=== PATIENT | female | born 1995 | race Two or more races ===

== ENCOUNTER 2023-05-02 10:14 | Outpatient (REF) | payer MEDICAID, OTHER, SELFPAY ==
--- NOTE | ~2023-05-02 | XR_ITS ---
EXAMINATION: XR KNEE, LEFT CLINICAL INFORMATION: Pain COMPARISON: None available. TECHNIQUE: Three views of the left knee. FINDINGS: No significant knee joint effusion. Bones are normal anatomic alignment with no acute fracture or dislocation. No significant bony degenerative or destructive changes. XR/XR knee LT 3V IMPRESSION: No acute bony abnormality.
== END 2023-05-02 10:15 | disposition home or self-care (01) ==
LOC: HO.HHCX 10:14
PROVIDERS: Visit Provider Family Medicine
DX: M25.562 Pain in left knee (principal)
CPT/HCPCS: 73562

== ENCOUNTER 2023-05-02 11:14 | Outpatient (REF) | payer MEDICAID, OTHER, SELFPAY ==
[2023-05-02 13:31] LABS: UPreg QC Valid YES; Urine Pregnancy NEGATIVE (NEGATIVE)
[2023-05-02 16:43] LABS: CT PCR NOT DETECTED (Not Detect.); NG PCR NOT DETECTED (Not Detect.)
[2023-05-03 02:24] LABS: Syphilis Screen Nonreactive (Nonreactive)
[2023-05-03 02:58] LABS: HBS Num1 0.06 mIU/mL (0-7.99); HBc Num1 0.15 S/CO (0.00-0.79); HBsAGNum1 0.38 S/CO (0.00-0.99); HIV AB/AG Nonreactive (Nonreactive); HIV Num 1 0.06 S/CO (0.00-0.99); Hepatitis B Core Antibody Nonreactive (Nonreactive); Hepatitis B Surface Antigen Negative (Negative); ~Hepatitis B Surface Antibody NONREACTIVE (Nonreactive)
[2023-05-03 03:11] LABS: ~HepC Num1 0.17 S/CO (0.00-0.79); ~Hepatitis C Antibody Nonreactive (Nonreactive)
== END 2023-05-02 11:15 | disposition home or self-care (01) ==
LOC: HO.HHCL 11:14
PROVIDERS: Visit Provider Family Medicine
DX: Z11.4 Encounter for screening for human immunodeficiency virus [HIV] (principal); Z11.3 Encounter for screening for infections with a predominantly sexual mode of transmission
CPT/HCPCS: 0353U; 81025; 86704; 86706; 86780; 86803; 87340; 87389

== ENCOUNTER 2023-06-12 11:07 | Outpatient (REF) | payer MEDICAID, OTHER, SELFPAY ==
[2023-06-13 21:43] LABS: Rubella IgG Antibody 5.26 Index
== END 2023-06-12 11:08 | disposition home or self-care (01) ==
LOC: HO.HHCL 11:07
PROVIDERS: Visit Provider Family Medicine
DX: Z00.00 Encounter for general adult medical examination without abnormal findings (principal)
CPT/HCPCS: 36415; 86735; 86762; 86765

== ENCOUNTER 2023-11-02 11:12 | Outpatient (REF) | payer MEDICAID, OTHER, SELFPAY ==
[2023-11-02 12:59] LABS: MANUAL DIFF FLAG NO
[2023-11-02 13:10] LABS: Basophils Percent Auto 0.4 % (0-2); Eosinophils Absolute Auto 0.1 X10*3/uL (0.0-0.4); Eosinophils Percent Auto 1.3 % (0-4); Hematocrit 40.3 % (37.0-47.0); Hemoglobin 13.8 g/dl (12.0-16.0); Imm Gran Abs Auto 0.03 X10*3/uL (0.00-0.03); Imm Gran Pct Auto 0.3 % (0.0-0.4); Lymphocytes Absolute Auto 1.5 X10*3/uL (1.2-4.9); Lymphocytes Percent Auto 16.9 % (20-40); Mean Corpuscular HGB Conc 34.2 g/dl (31.0-35.0); Mean Corpuscular Hemoglobin 29.2 pg (27.0-33.0); Mean Corpuscular Volume 85.2 fL (80.0-98.0); Mean Platelet Volume 9.1 fL (9.4-12.3); Monocytes Absolute Auto 0.6 X10*3/uL (0.1-1.2); Monocytes Percent Auto 6.3 % (2-11); Neutrophils Absolute Auto 6.8 x10*3/uL (2.0-8.3); Neutrophils Percent Auto 74.8 % (45-73); Platelet Count 323 X10*3/uL (160-400); Red Blood Count 4.73 X10*6/uL (4.20-5.50); Red Cell Distribution Width 12.6 % (11.0-16.0); White Blood Count 9.1 X10*3/uL (4.8-10.8)
[2023-11-02 13:46] LABS: Alanine Aminotransferase 16 U/L (0-31); Albumin Level 4.3 g/dL (3.5-5.0); Alkaline Phosphatase 60 U/L (39-117); Anion Gap 10 (12-20); Aspartate Amino Transferase 17 U/L (5-31); Bilirubin Total 0.5 mg/dL (0.0-1.0); Blood Urea Nitrogen 16 mg/dL (9-16); Calcium 9.7 mg/dL (8.4-10.2); Carbon Dioxide 27 mmol/L (22-29); Chloride 108 mmol/L (96-108); Estimated Glomerular Filt Rate > 60; Glucose Random 82 mg/dL (60-115); Potassium 3.7 mmol/L (3.3-5.1); Sodium 141 mmol/L (135-145); Thyroid Stimulating Hormone 1.09 uIU/mL (0.32-4.0); Total Protein 7.8 g/dL (6.5-8.0)
== END 2023-11-02 11:13 | disposition home or self-care (01) ==
LOC: HO.HHCL 11:12
PROVIDERS: Visit Provider Family Medicine
DX: R63.4 Abnormal weight loss (principal)
CPT/HCPCS: 36415; 80053; 84443; 85025

== ENCOUNTER 2023-11-07 12:11 | Outpatient (REF) | payer MEDICAID, OTHER, SELFPAY | END 2023-11-07 12:12 | disposition home or self-care (01) | LOC: HO.HHCLNP 12:11 | PROVIDERS: Visit Provider Family Medicine | DX: R63.4 Abnormal weight loss (principal); R10.9 Unspecified abdominal pain | CPT/HCPCS: 87338 ==

== ENCOUNTER 2024-05-21 13:57 | Outpatient (REF) | payer MEDICAID, OTHER, SELFPAY ==
[2024-05-21 18:39] LABS: CT PCR NOT DETECTED (Not Detect.); NG PCR NOT DETECTED (Not Detect.)
[2024-05-22 04:29] LABS: Syphilis Screen Nonreactive (Nonreactive)
[2024-05-22 04:54] LABS: Hepatitis A Antibody IgG REACTIVE (Nonreactive); ~Hepatitis A Antibody IgG 12.19 S/CO (0.00-0.99)
[2024-05-22 04:55] LABS: HBc Num1 0.48 S/CO (0.00-0.79); HBsAGNum1 0.26 S/CO (0.00-0.99); HIV AB/AG Nonreactive (Nonreactive); HIV Num 1 0.05 S/CO (0.00-0.99); Hepatitis B Core Antibody Nonreactive (Nonreactive); Hepatitis B Surface Antigen Negative (Negative); ~HepC Num1 0.15 S/CO (0.00-0.79); ~Hepatitis B Surface Antibody REACTIVE (Nonreactive); ~Hepatitis C Antibody Nonreactive (Nonreactive)
== END 2024-05-21 13:58 | disposition home or self-care (01) ==
LOC: HO.HHCL 13:57
PROVIDERS: Visit Provider Family Medicine
DX: Z11.3 Encounter for screening for infections with a predominantly sexual mode of transmission (principal)
CPT/HCPCS: 36415; 86704; 86706; 86708; 86780; 86803; 87340; 87389; 87491; 87591

== ENCOUNTER 2024-07-04 18:41 | Outpatient (REF) | payer MEDICAID, OTHER, SELFPAY ==
--- NOTE | ~2024-07-04 | MR_ITS ---
EXAMINATION: MR KNEE WITHOUT CONTRAST, LEFT CLINICAL INFORMATION: Knee pain. COMPARISON: None available. TECHNIQUE: MRI of the knee without contrast was performed using routine sequences on a high-field scanner. FINDINGS: MENISCI: Medial Meniscus: Intact Lateral Meniscus: There is irregular abnormal signal throughout the body and anterior horn extending to the femoral articular surface indicative of meniscal tearing. Posterior horn intact. Trace edema/fluid lateral to the meniscal body. LIGAMENTS: Cruciate: Intact Collateral: Intact EXTENSOR MECHANISM: Intact ARTICULAR CARTILAGE/BONE: Patellofemoral Compartment: Normal Medial Compartment: Normal Lateral Compartment: Normal JOINT FLUID AND BURSAE: Trace Kuhn's cyst. MR/MR knee LT wo con IMPRESSION: Tear of the lateral meniscus. Electronically signed by: Bib Paige MD 07/08/2024 01:19 PM EDT
== END 2024-07-04 18:42 | disposition home or self-care (01) ==
LOC: HO.MRI 18:41
PROVIDERS: PCP Family Medicine; Visit Provider Family Medicine
DX: M25.562 Pain in left knee (principal)
CPT/HCPCS: 73721

== ENCOUNTER 2024-07-08 | Outpatient (REF) | payer MEDICAID, OTHER, SELFPAY ==
[2024-07-11 22:52] LABS: C. trachomatis RNA TMA NOT DETECTED (NOT DETECTED); N. gonorrhoeae RNA TMA NOT DETECTED (NOT DETECTED)
[2024-07-30 15:04] LABS: Previous Biopsy Date NONE GIVEN
[2024-08-06 08:42] LABS: Trichomonas (NAAT) NOT DETECTED
== END 2024-07-08 00:01 | disposition home or self-care (01) ==
LOC: HO.HHCLNP
PROVIDERS: Visit Provider Family Medicine
DX: Z01.419 Encounter for gynecological examination (general) (routine) without abnormal findings (principal)
CPT/HCPCS: 36415; 87491; 87591; 87661; 88175

== ENCOUNTER 2025-03-24 13:14 | Outpatient (REF) | payer MEDICAID, OTHER, SELFPAY ==
--- OUTSIDE RECORDS SUMMARY | 2025-03-24 14:15 | XMS_ITS | Clinical Summary ---
Author Organization [facility] Address [address] [id number] Care Team Providers Care Professor Of Environmental Studies Name Role Phone Kasandra Mar Primary Care Provider [phone] Allergies No known active allergies Medications No known medications Active Problems No known active problems Social History Tobacco Use Types Packs/Day Years Used Date Smoking Tobacco: Never Assessed Comments Unknown Sex and Gender Information Value Date Recorded Sex Assigned at Not on file Legal Sex Female 2:02 PM EDT Gender Identity Not on file Sexual Orientation Not on file Plan of Treatment Health Maintenance Due Date Last Done Comments Pap Smear 1996 Varicella Vaccines (1 of 2 - 13+ 2-dose series) 01/23/2009 COVID-19 Vaccine (2023-2 5 season) 2024 11/05/2021, 10/14/2021 Alcohol/Substance Use Screening 10/23/2024 Depression Screening and Follow-Up 10/23/2024 Social Drivers of Health Annual Screening 10/23/2024 Influenza Vaccine (Season Ended) 2025 DTaP,Tdap,and Td Vaccines (2 - Td or Tdap) 06/12/2033 06/12/2023 RSV Vaccine (60+ years old and patients) (1 - 1-dose 75+ series) 01/23/2071 Hepatitis B Vaccines Completed 12/14/2023, 07/13/2023, 06/12/2023 HIV Screening Completed 05/21/2024, 05/21/2024 Hepatitis C Screening Completed 05/21/2024 Pneumococcal Vaccine: Pediatric (0-5 Years) and At-Risk Patients (6-50 Years) Aged Out No longer eligible based on patient's age to complete this topic [facility] Care Teams Professor Of Environmental Studies Relationship Specialty Start Date End Date Kasandra Mar [address] [place] [address] PCP - General Family Medicine 07/12/24
[2025-03-24 16:08] LABS: MANUAL DIFF FLAG NO
[2025-03-24 16:13] LABS: Basophils Percent Auto 0.5 % (0-2); Eosinophils Absolute Auto 0.1 X10*3/uL (0.0-0.4); Eosinophils Percent Auto 1.8 % (0-4); Hematocrit 36.6 % (37.0-47.0); Hemoglobin 12.9 g/dl (12.0-16.0); Imm Gran Abs Auto 0.01 X10*3/uL (0.00-0.03); Imm Gran Pct Auto 0.2 % (0.0-0.4); Lymphocytes Absolute Auto 1.7 X10*3/uL (1.2-4.9); Lymphocytes Percent Auto 26.9 % (20-40); Mean Corpuscular HGB Conc 35.2 g/dl (31.0-35.0); Mean Corpuscular Hemoglobin 28.7 pg (27.0-33.0); Mean Corpuscular Volume 81.5 fL (80.0-98.0); Mean Platelet Volume 9.2 fL (9.4-12.3); Monocytes Absolute Auto 0.5 X10*3/uL (0.1-1.2); Monocytes Percent Auto 7.4 % (2-11); Neutrophils Absolute Auto 3.9 x10*3/uL (2.0-8.3); Neutrophils Percent Auto 63.2 % (45-73); Platelet Count 286 X10*3/uL (160-400); Red Blood Count 4.49 X10*6/uL (4.20-5.50); Red Cell Distribution Width 13.2 % (11.0-16.0); White Blood Count 6.2 X10*3/uL (4.8-10.8)
[2025-03-24 17:04] LABS: Alanine Aminotransferase 21 U/L (0-31); Albumin Level 4.3 g/dL (3.5-5.0); Alkaline Phosphatase 48 U/L (39-117); Anion Gap 11 (12-20); Aspartate Amino Transferase 22 U/L (5-31); Bilirubin Total 0.4 mg/dL (0.0-1.0); Blood Urea Nitrogen 20 mg/dL (9-16); Calcium 9.2 mg/dL (8.4-10.2); Carbon Dioxide 23 mmol/L (22-29); Chloride 109 mmol/L (96-108); Estimated Glomerular Filt Rate > 60; Glucose Random 97 mg/dL (60-115); Potassium 3.5 mmol/L (3.3-5.1); Sodium 139 mmol/L (135-145); Total Protein 7.4 g/dL (6.5-8.0)
[2025-03-24 17:12] LABS: TSH reflex Free T4 1.63 uIU/mL (0.32-4.0)
== END 2025-03-24 13:15 | disposition home or self-care (01) ==
LOC: HO.HHCL 13:14
PROVIDERS: Visit Provider Family Medicine
DX: R59.9 Enlarged lymph nodes, unspecified (principal)
CPT/HCPCS: 36415; 80053; 84443; 85025

== ENCOUNTER 2025-06-24 14:54 | Outpatient (REF) | payer MEDICAID, OTHER, SELFPAY ==
--- OUTSIDE RECORDS SUMMARY | 2025-06-24 14:15 | XMS_ITS | Encounter Summary ---
Author Organization [employer] Address [address] [place] [address] [address] [place] [address] Care Team Providers Care Ovens Supervisor Name Role Phone Kasandra Mar MD Primary Care Provider [phone] Encounter Details Date Type Department Care Team ([facility] st Contact Info) Description 06/24/2025 2:15 PM EDT Office Visit [facility] [address] [place], [place] [phone] Kasandra Mar MD [address] [place], [place] [phone] Anemia, unspecified type (Primary Dx) Social History Tobacco Use Types Packs/Day Years Used Date Smoking Tobacco: Never Passive Smoke Exposure: Never Smokeless Tobacco: Never Alcohol Use Standard Drinks/Week Comments Never 0 (1 standard drink = 0.6 oz pur e alcohol) Alcohol Answer Date Recorded Frequency of Alcohol Consumption Not on file 04/30/2024 Average Number of Drinks Not on file 024 Frequency of Binge Drinking Not on file 06/2024 Score 0 04/30/2024 Depression Answer Date Recorded Patient Health Questionnaire-9 Score 0 03/24/2025 Patient Health Questionnaire-9 Score 0 03/24/2025 Last PHQ-9: Questionnaire Data Not on file 0 03/24/2025 Housing Stability Answer Date Recorded What is your housing situation today? I have sara gilmore 08/28/[address] you li ve. Do you have problems with any of the following? None of the above 08/28/2023 Food Insecurity Answer Date Recorded Within the past 12 months, y ou worried that your food would run out before you got money to buy more: Never True 03/24/2025 Within the past 12 months,th e food you bought just didn't last and you didn't have enough money to get more: Never True 11/2024 Transportation Answer Date Recorded In the past 12 months, has l ack of transportation kept you from medical appts, meetings, work or from getting things needed for daily living? No 04/18/2024 Utilities Answer Date Recorded In the past 12 months, has t he electric, gas, oil or water company threatened to shut off services in your home? No 08/28/2023 Depression Answer Date Recorded Patient Health Questionnaire-2 Score 0 03/24/2025 Internet Access Answer Date Recorded Internet Access Q1 Yes 06/24/2024 Internet Access Q2 Not on file 06/24/2024 Comments No Sex and Gender Information Value Date Recorded Sex Assigned at Female 08/22/2022 10:39 AM EDT Legal Sex Female 10:39 AM EDT Gender Identity Female 01/26/2023 8:58 AM EDT Sexual Orientation Choose not to disclose 2021 10:39 AM EDT documented as of this encounter Last Filed Vital Signs Vital Sign Reading Time Taken Comments Blood Pressure 100/80 06/24/2025 2:11 PM EDT Pulse 74 06/24/2025 2:11 PM EDT Temperature 36.1 C (96.9 F) 06/24/2025 2:11 PM EDT Respiratory Rate 20 06/24/2025 2:11 PM EDT Oxygen Saturation 100% 06/24/2025 2:11 PM EDT Inhaled Oxygen Concentration - - Weight 56.4 kg (124 lb 6.4 oz) 06/24/2025 2:11 P M EDT Height 149.9 cm (4' 11 ) 06/24/2025 2:11 PM EDT Body Mass Index 25.13 06/24/2025 2:11 PM EDT documented in this encounter Plan of Treatment Upcoming Encounters Date Type Department Care Team (Late st Contact Info) Description 07/29/2025 2:30 PM EDT Office Visit [facility] [address] [place] [address] Ryan, Estelle, OD [address] [place], [place] [phone] Scheduled Orders Name Type Priority Associated Diagnoses Orde r Schedule CBC auto differential Lab Routine Anemia, unspecified type Expected: 06/24/2025 (Approximate), Expires: 06/24/2026 TSH with Reflex to Free T4 Lab Routine Anemia, unspecified type Expected: 06/24/2025 (Approximate), Expires: 06/24/2026 Ferritin Lab Routine Anemia, unspecified type Expected: 06/24/2025 (Approximate), Expires: 06/24/2026 Iron And Total Iron Binding Capacity Lab Routine Anemia, unspecified type Expected: 06/24/2025, Expires: 06/24/2026 Reticulocyte Count Lab Routine Anemia, unspecified type Expected: 06/24/2025, Expires: 06/24/2026 Vitamin B12 (Cobalamin) and Folate Panel, Serum Lab Routine Anemia, unspecified type Expected: 06/24/2025 (Approximate), Expires: 06/24/2026 documented as of this encounter Visit Diagnoses Diagnosis Anemia, unspecified type- Primary documented in this encounter Additional Health Concerns Assessment Noted Time PHQ-9 Depression Total Score: 0 03/24/20 25 11:11 AM EDT documented as of this encounter Care Teams Ovens Supervisor Relationship Specialty Start Date End Date Kasandra Mar MD [address] [place] [address] PCP - General Family Medicine 04/27/23 documented as of this encounter
--- OUTSIDE RECORDS SUMMARY | 2025-06-24 16:09 | XMS_ITS | Clinical Summary ---
Author Organization [facility] Address [address] [phone] Care Team Providers Care Yield Improvement Engineer Name Role Phone Kasandra Mar Primary Care Provider [phone] Allergies No known active allergies Medications No [...] of 2 - 13+ 2-dose series) 01/23/2009 Alcohol/Substance Use Screening 10/23/2024 Depression Screening and Follow-Up 10/23/2024 Social Drivers of Health Annual Screening 10/23/2024 COVID-19 Vaccine (3 - 2024-2 6 season) 2025 11/05/2021, 10/14/2021 Influenza Vaccine (#1) 2025 DTaP,Tdap,and Td Vaccines (2 - Td [...] patient's age to complete this topic Insurance [facility] Care Teams Yield Improvement Engineer Relationship Specialty Start Date End Date Kasandra Mar [address] [place] [id number] PCP - General Family Medicine 07/12/24
--- OUTSIDE RECORDS SUMMARY | 2025-06-24 16:09 | XMS_ITS | Encounter Summary ---
Author Organization [employer] Address [address] [place] [address] [address] [place] [address] Care Team Providers Care Industrial Technology Education Teacher Name Role Phone Kasandra Mar MD Primary Care Provider [phone] Reason for Referral * Imaging (Routine) - Closed Specialty Diagnoses / Procedures Referred By Latonya carmona Referred To Contact Radiology Diagnoses Left anterior knee pain Procedures MR Knee w/o Contrast Left Kasandra Mar MD [address] [place] [address] Phone: tel: fax: [address] Phone: tel: fax: Referral ID Status Reason Start Date Expiration Date Visits Re quested Visits Authorized [id number] Closed 05/20/2024 05/20/2025 1 1 Encounter Details Date Type Department Care Team (Late st Contact Info) Description 05/20/2024 Orders Only [facility] [address] [place], [place] [phone] Kasandra Mar MD [address] [place], [place] [phone] Left anterior knee pain (Primary Dx) Social History Tobacco Use Types [...] Answer Date Recorded Patient Health Questionnaire-9 Score 12 04/30/2024 Patient Health Questionnaire-9 Score 12 04/30/2024 Last PHQ-9: Questionnaire Data Not on file 0 04/30/2024 Housing Stability Answer Date Recorded What is your housing situation today? I have sara gilmore 08/28/[address] you li ve. Do you have problems with any of the following? None of the above 08/28/2023 Food Insecurity Answer Date Recorded Within the past 12 months, y ou worried that your food would run out before you got money to buy more: Sometimes True 2023 Within the past 12 months,th e food you bought just didn't last and you didn't have enough money to get more: Sometimes True 04/18/2024 Transportation Answer Date Recorded In the past [...] Answer Date Recorded Patient Health Questionnaire-2 Score 3 04/30/2024 Comments No Sex and Gender Information Value Date Recorded Sex Assigned at Female 08/22/2022 10:39 AM EDT Legal Sex Female 10:39 AM EDT Gender Identity Female 01/26/2023 8:58 AM EDT Sexual Orientation Choose not to disclose 2021 10:39 AM EDT documented as of this encounter Plan of Treatment Upcoming Encounters Date Type Department Care Team (Late st Contact Info) Description 07/29/2025 2:30 PM EDT Office Visit [facility] [address] [place], [place] [phone] Ryan, Estelle, OD [address] [place] [address] documented as of this encounter Procedures Procedure Name Priority Date/Time Associated Diagnosis Comments MR KNEE WO CONTRAST LEFT Routine 07/04/2024 6:49 PM EDT Left anterior knee pain documented in this encounter Results * MR Knee w/o Contrast Left (07/04/2024 6:49 PM EDT) Anatomical Region Laterality Modality Magnetic Resonan ce 07/04/2024 6:49 PM EDT Narrative 07/08/2024 1:21 PM EDT [address] [address] Magnetic Resonance Report Signed Patient: Crystal Desouza MR#: [id number] : 1995 Acct:[id number] Age/Sex: 29 / F ADM Date: 07/04/24 Loc: HO.MRI Attending Dr: Kasandra Mar MD Ordering Physician: Kasandra Mar MD Date of Service: 07/04/24 Procedure(s): MR knee LT wo con Accession Number(s): [id number] cc: Kasandra Mar MD EXAMINATION: MR KNEE WITHOUT CONTRAST, LEFT CLINICAL INFORMATION: Knee pain. COMPARISON: None available. TECHNIQUE: MRI of the knee without contrast was performed using routine sequences on a high-field scanner. FINDINGS: MENISCI: Medial Meniscus: Intact Lateral Meniscus: There is irregular abnormal signal throughout the body and anterior horn extending to the femoral articular surface indicative of meniscal tearing. Posterior horn intact. Trace edema/fluid lateral to the meniscal body. LIGAMENTS: Cruciate: Intact Collateral: Intact EXTENSOR MECHANISM: Intact ARTICULAR CARTILAGE/BONE: Patellofemoral Compartment: Normal Medial Compartment: Normal Lateral Compartment: Normal JOINT FLUID AND BURSAE: Trace Kuhn's cyst. MR/MR knee LT wo con IMPRESSION: Tear of the lateral meniscus. Electronically signed by: Bib Paige MD 07/08/2024 01:19 PM EDT Dictated By: Bib Paige MD Signed By: <Electronically signed by Bib Paige MD in OV> 07/08/24 1319 DD/ 1849 TD/TT: 07/04/24 1858 Lamp Wirer: NIMA Procedure Note Donotuseinterpreter, Image - 07/08/2024 [facility] [address] [place] [id number] Magnetic Resonance Report Signed Patient: Joseph Desouza#: [id number] : 1995Acct:[id number] Age/Sex: 29 / FADM Date: 07/04/24 Loc: HO.MRI Attending Dr: Kasandra Mar MD Ordering Physician: Kasandra Mar MD Date of Service: 07/04/24 Procedure(s): MR knee LT wo con Accession Number(s): [id number] cc: Kasandra Mar MD EXAMINATION: MR KNEE WITHOUT CONTRAST, LEFT CLINICAL INFORMATION: Knee pain. COMPARISON: None available. TECHNIQUE: MRI of the knee without contrast was performed using routine sequences on a high-field scanner. FINDINGS: MENISCI: Medial Meniscus: Intact Lateral Meniscus: There is irregular abnormal signal throughout the body and anterior horn extending to the femoral articular surface indicative of meniscal tearing. Posterior horn intact. Trace edema/fluid lateral to the meniscal body. LIGAMENTS: Cruciate: Intact Collateral: Intact EXTENSOR MECHANISM: Intact ARTICULAR CARTILAGE/BONE: Patellofemoral Compartment: Normal Medial Compartment: Normal Lateral Compartment: Normal JOINT FLUID AND BURSAE: Trace Kuhn's cyst. MR/MR knee LT wo con IMPRESSION: Tear of the lateral meniscus. Electronically signed by: Bib Paige MD 07/08/2024 01:19 PM EDT Dictated By: Bib Paige MD Signed By: <Electronically signed by Bib Paige MD inOV> 07/08/24 1319 DD/ 1849 TD/TT: 07/04/24 1858 Lamp Wirer: NIMA Kasandra Mar MD IMG MRI PROCEDURES Edited Result - Final documented in this encounter Visit Diagnoses Diagnosis Left anterior knee pain- Primary documented in this encounter Additional Health Concerns Assessment Noted Time PHQ-9 Depression Total Score: 12 024 4:23 PM EDT documented as of this encounter Care Teams Industrial Technology Education Teacher Relationship Specialty Start Date End Date Kasandra Mar MD [address] [place] [id number] PCP - General Family Medicine 04/27/23 documented as of this encounter
--- OUTSIDE RECORDS SUMMARY | 2025-06-24 16:09 | XMS_ITS | Encounter Summary ---
Author Organization [employer] Address [address] [place] [address] [address] [place] [address] Care Team Providers Care Customer Solutions Representative Name Role Phone Kasandra Mar MD Primary Care Provider [phone] Kasandra Mar MD Primary Care Provider [phone] Reason for Visit * Reason Onset Date Comments New Patient Appt 03/17/2023 Encounter Details Date Type Department Care Team (Late st Contact Info) Description 03/17/2023 Telephone [facility] [address] [place], [place] [phone] Kasandra Mar MD [address] [place] [address] New Patient Appt Social History Tobacco Use Types Packs/Day Years Used Date Smoking Tobacco: Never Smokeless Tobacco: Never Alcohol Use Standard Drinks/Week Comments Never 0 (1 standard drink = 0.6 oz pur e alcohol) Comments No Sex and Gender Information Value Date Recorded Sex Assigned at Female 08/22/2022 10:39 AM EDT Legal Sex Female 10:39 AM EDT Gender Identity Female 01/26/2023 8:58 AM EDT Sexual Orientation Choose not to disclose 2021 10:39 AM EDT COVID-19 Exposure Response Date Recorded In the last 10 days, have yo u been in contact with someone who was confirmed or suspected to have Coronavirus/COVID-19? No / Unsure 03/17/2023 12:51 PM EDT documented as of this encounter Miscellaneous Notes * Telephone Encounter - Nuzhat Eldridge David - 03/17/2023 11:23 AM EDT Tc to pt to Offer PASTRY COOK APPRENTICE appt, staff writer saw Pt was already schedule for an PASTRY COOK APPRENTICE on 04/27/[address] Mar @ 9:30 am. Pt demographics and insurance was confirmed and verified. Pt reports no medical conditions. Pt informs not taking any medications at this time. Pt will be sent appt reminder card and medical release form and agrees to complete and to return to medical records prior to PASTRY COOK APPRENTICE appt. documented in this encounter Plan of Treatment Upcoming Encounters Date Type Department Care Team (Late st Contact Info) Description 07/29/2025 2:30 PM EDT Office Visit [facility] [address] [place], [place] [phone] Estelle Davis, OD [address] [place] [address] documented as of this encounter Visit Diagnoses Not on filedocumented in this encounter Care Teams Customer Solutions Representative Relationship Specialty Start Date End Date Kasandra Mar MD [address] [place] [address] PCP - General Family Medicine 03/17/23 03/22/23 Kasandra Mar MD [address] [place] [address] PCP - General Family Medicine 04/27/23 documented as of this encounter
--- OUTSIDE RECORDS SUMMARY | 2025-06-24 16:09 | XMS_ITS | Encounter Summary ---
Author Organization [employer] Address [address] [place] [address] [address], [place] [address] Care Team Providers Care Security Analyst Name Role Phone Kasandra Mar MD Primary Care Provider [phone] Reason for Referral * Consultation (Urgent) - Closed Specialty Diagnoses / Procedures Referred By Contsayra t Referred To Contact Physical Therapy Diagnoses Left anterior knee pain Tear of lateral meniscus of left knee, current, unspecified tear type, initial encounter Kasandra Mar MD [address] [place] [address] Phone: tel: fax: [facility] [address] [place] [address] Phone: tel: fax: Referral ID Status Reason Start Date Expiration Date V isits Requested Visits Authorized [id number] Closed Specialty Services Required 07/23/2024 07/23/2025 1 1 Encounter Details Date Type Department Care Team (Late st Contact Info) Description 07/23/2024 Orders Only [facility] [address] [place], [place] [phone] Kasandra Mar MD [address] [place], [place] [phone] Left anterior knee pain (Primary Dx); Tear of lateral meniscus of left knee, current, unspecified tear type, initial encounter Social History Tobacco Use Types Packs/Day Years [...] Recorded Patient Health Questionnaire-2 Score 3 04/30/2024 Internet Access Answer Date Recorded Internet Access [...] Description 07/29/2025 2:30 PM EDT Office Visit [facility] [address] [place] [address] Estelle Davis, OD [address] [place] [address] documented as of this encounter Procedures Procedure Name Priority Date/Time Associated Diagnosis Comments AMB REFERRAL TO PHYSICAL THERAPY Urgent 10/08/2024 Left anterior knee pain Tear of lateral meniscus of left knee, current, unspecified tear type, initial encounter documented in this encounter Results * Referral to Physical Therapy (10/08/2024) Kasandra Mar MD OUTPATIENT REFERRAL ORDERABLES F inal Result documented in this encounter Visit Diagnoses Diagnosis Left anterior knee pain- Primary Tear of lateral meniscus of left knee, current, unspecified tear type, initial encounter documented in this encounter Additional Health Concerns Assessment Noted Time PHQ-9 Depression Total Score: 12 04/30/ 024 4:23 PM EDT documented as of this encounter Care Teams Security Analyst Relationship Specialty Start Date End Date Kasandra Mar MD [address] [place] [address] PCP - General Family Medicine 04/27/23 documented as of this encounter
--- OUTSIDE RECORDS SUMMARY | 2025-06-24 16:10 | XMS_ITS | Clinical Summary ---
Author Organization [facility] Address [address] [place] [address] [place] [id number] Phone Care Team Providers Care Porter Head Name Role Phone Kasandra Mar MD Primary Care Provider [phone] Allergies No known active allergies Social History Tobacco Use Types Packs/Day Years Used Date Smoking Tobacco: Never Assessed Education Answer Date Recorded Are you interested in more education? Not on rosio e 06/30/2023 Are you concerned about learning? Not on file 06/30/2023 No 06/30/2023 No 06/30/2023 Digital Access Answer Date Recorded No 06/30/2023 No 06/30/2023 Reliable internet access at home? Not on file 06/30/2023 Device with a working camera? Not on file Intimate Partner Violence Answer Date R ecorded Are you denied basic needs s uch as food, clothing, or medical care? No 06/30/2023 In the past 12 months have y ou been in a relationship with a person who hurts, threatens, or tries to control you? No 06/30/2023 Are you denied basic needs s uch as food, clothing, or medical care? No 06/30/2023 In the past 12 months have y ou been in a relationship with a person who hurts, threatens, or tries to control you? No 06/30/2023 Comments Unknown Sex and Gender Information Value Date Recorded Sex Assigned at Not on file Legal Sex Female 4:04 PM EDT Gender Identity Not on file Sexual Orientation Not on file Last Filed Vital Signs Vital Sign Reading Time Taken Comments Blood Pressure 101/62 06/30/2023 7:48 PM EDT Pulse 82 06/30/2023 7:48 PM EDT Temperature 36.4 C (97.5 F) 06/30/2023 7:48 PM EDT Respiratory Rate 18 06/30/2023 7:48 PM EDT Oxygen Saturation 100% 06/30/2023 7:48 PM EDT Inhaled Oxygen Concentration - - Weight 56.7 kg (125 lb) 06/30/2023 4:27 PM EDT Height 152.4 cm (5') 06/30/2023 4:27 PM EDT Body Mass Index 24.41 06/30/2023 4:27 PM EDT Plan of Treatment Health Maintenance Due Date Last Done Comments DEPRESSION SCREENING 2008 SMOKING Hx and SMOKELESS TOB ACCO SCREENING 01/23/2009 HEPATITIS C SCREENING 01/23/2014 HIV ONE-TIME SCREENING (18-6 5 YEARS) 01/23/2014 PAP SMEAR 01/23/2017 INFLUENZA VACCINE (#1) 2025 COVID-19 VACCINE (2023-2 5 season) 2025 Adult Td,Tdap Booster 06/12/2033 06/12/2023 HEPATITIS A VACCINES Aged Out No long er eligible based on patient's age to complete this topic HIB VACCINES Aged Out No longer eligi ble based on patient's age to complete this topic MENINGOCOCCAL VACCINES (ACWY) Aged Out No longer eligible based on patient's age to complete this topic MENINGOCOCCAL VACCINES (B) Aged Out N o longer eligible based on patient's age to complete this topic PNEUMOCOCCAL VACCINES (0-49 years) Aged Out No longer eligible based on patient's age to complete this topic Medical Devices Not on file Insurance [employer] HEALTH SAFETY NET FULL Member Subscriber Plan / Payer (Ef fective 2023-Present) Name:Crystal Desouza Relation to Subscriber:Self Name:Crystal Desouza Payer ID:Not on file Group ID:Not on file Type:Medicaid [address] [facility] HEALTH SAF[employer]Y NET FULL [employer] PUBLIC PLANS [employer] [facility] PLANS CONNE[employer]ARE DIRECT [facility] FULL [facility] DIRECT [facility] Address: [address] [id number] [facility] [employer] NET FULL Member Subscriber Plan / Payer (Ef fective 2023-Present) Name:Crystal Desouza Relation to Subscriber:Self Name:Crystal Desouza Payer ID:Not on file Group ID:Not on file Type:Medicaid Address: [address] [employer] [facility] SAFETY NET FULL Member Subscriber Plan / Payer (Ef fective 2023-Present) Name:Crystal Desouza Relation to Subscriber:Self Name:Crystal Desouza Payer ID:Not on file Group ID:Not on file Type:Medicaid Address: [address] [employer] DIRECT Care Teams Porter Head Relationship Specialty Start Date End Date Kasandra Mar MD [address] [place] [phone] PCP - General Family Medicine 07/25/24 Additional Source Comments The information contained in this document represents components of the legal health record. It is not the complete legal health record.[facility]
--- OUTSIDE RECORDS SUMMARY | 2025-06-24 16:10 | XMS_ITS | Encounter Summary ---
Author Organization [employer] Address [address] [place] [phone] Care Team Providers Care Cart Pusher Name Role Phone Kasandra Mar MD Primary Care Provider [phone] Reason for Visit * Reason Onset Date Comments Med Refill 06/16/2025 Encounter Details Date Type Department Care Team ([facility] st Contact Info) Description 06/16/2025 Telephone [facility] MEDICINE [address], [place] [phone] Kasandra Mar MD [address] [place], [place] [phone] Med Refill Social History Tobacco Use Types Packs/Day Years [...] AM EDT documented as of this encounter Miscellaneous Notes * Telephone Encounter - Claire Crabtree LPN - 06/16/2025 11:01 AM EDT Medication was sent to [facility] Pharmacy on 02/25/25 with 12 refills. * Telephone Encounter - Harsha Georges - 06/16/2025 10:28 AM EDT TC from pt requesting medication refill. Medications needing refill : norelgestromin-ethinyl estradiol (Ortho-Evra) 150-35 MCG/24HR To be sent to: [facility] documented in this encounter Plan of Treatment Upcoming Encounters Date Type Department Care Team (Late st Contact Info) Description 07/29/2025 2:30 PM EDT Office Visit [facility] OPTOMETRY [address], [place] [phone] Estelle Davis, OD [address] [place] [address] documented as of this encounter Visit Diagnoses Not on filedocumented in this encounter Additional Health Concerns Assessment Noted Time PHQ-9 Depression Total Score: 0 03/24/20 25 11:11 AM EDT documented as of this encounter Care Teams Cart Pusher Relationship Specialty Start Date End Date Kasandra Mar MD [address] [facility] [place] [address] PCP - General Family Medicine 04/27/23 documented as of this encounter
--- OUTSIDE RECORDS SUMMARY | 2025-06-24 16:10 | XMS_ITS | Clinical Summary ---
Author Organization [employer] Address [address] [place] [address] [address] [place] [address] Care Team Providers Care Wiener Packer Name Role Phone Kasandra Mar MD Primary Care Provider [phone] Allergies No known active allergies Medications * This document contains information received from the source organization and may not represent a complete record from that organization. chlorhexidine (Peridex) 0.12 % solution Use 15 mL in the mouth or throat if needed. Active terbinafine (LamISIL AT) 1 % cream Apply topically 2 times daily. 28.4 g 1 03/24/20 25 Active Urea 20 % ointment Apply to affected area once daily 454 g 2 03/24/20 25 Active hydrocortisone 2.5 % cream Apply topically 2 times daily. 28 g 2 03/24/20 25 Active diphenhydrAMIN E (BENADryl) 25 MG capsule Take 1 capsule (25 mg) by mouth every 6 (six) hours if needed for itching or allergies. 60 capsule 1 03/24/20 25 Active naproxen (Naprosyn) 500 MG tablet TAKE 1 TABLET BY MOUTH TWICE DAILY IN THE MORNING AND AT BEDTIME NEEDED FOR MILD PAIN OR FOR MODERATE PAIN 60 tablet 1 03/24/20 25 Active SUMAtriptan (Imitrex) 25 MG tablet Take 2 tablets (50 mg) by mouth 1 (one) time if needed for migraine for up to 1 dose. May repeat dose once in 2 hours if no relief. Do not exceed 2 doses in 24 hours. 9 tablet 3 03/24/20 25 Active norelgestromin -ethinyl estradiol (Ortho-Evra) 150-35 MCG/24HR Apply 1 patch each week for 3 weeks, then remove for 1 week. 3 patch 12 06/24/20 25 026 Active norelgestromin -ethinyl estradiol (Ortho-Evra) 150-35 MCG/24HR Apply 1 patch each week for 3 weeks, then remove for 1 week. 3 patch 12 02/26/20 025 Discontinued(Re order (will not trigger notification to Pharmacy)) Active Problems Problem Noted Date Diagnosed Date Family planning with transdermal contraceptive 0 04/04/2025 Assessment & Plan (04/04/2025 5:57 AM EDT): - Prescribed Ortho Evra in February 2025. -Patient has difficulty getting Ortho Evra from the pharmacy; will troubleshoot. Tinea pedis of both feet 04/04/2025 Assessment & Plan (04/04/2025 6:09 AM EDT): - trial of terbinafine topical or ciclopirox topical (cream) Lateral meniscus tear 07/08/2024 Skin lesion of right leg 04/30/2024 Assessment & Plan (04/30/2024 4:41 PM EDT): - a dark lesion near the right knee - will refer to dermatology clinic for further evaluation with possible biopsy Chronic headache 11/05/2023 Assessment & Plan (04/04/2025 6:02 AM EDT): - previously diagnosed with and treated for migraine in [facility] - likely migraine and tension headahe - APAP is effective, and current frequency is < 8 times per month - stress reduction, non-pharmacological measure for both prevention and treatment - continue current treatment at this time; reassess if she needs prophylactic medication and stronger abortive medication at next visit. Assessment & Plan (07/08/2024 5:05 PM EDT): - previously diagnosed with and treated for migraine in [facility] - likely migraine and tension headahe - APAP is effective, and current frequency is < 8 times per month - stress reduction, non-pharmacological measure for both prevention and treatment - continue current treatment at this time; reassess if she needs prophylactic medication and stronger abortive medication at next visit. Assessment & Plan (04/30/2024 4:38 PM EDT): - previously diagnosed with and treated for migraine in [facility] - likely migraine and tension headahe - APAP is effective, and current frequency is < 8 times per month - will monitor at this time - stress reduction, non-pharmacological measure for both prevention and treatment - reassess if she needs prophylactic medication and stronger abortive medication. Assessment & Plan (11/05/2023 6:14 AM EST): - previously diagnosed with and treated for migraine in [facility] - likely migraine and tension headahe - APAP is effective, and current frequency is < 8 times per month - will monitor at this time - stress reduction, non-pharmacological measure for both prevention and treatment - reassess if she needs prophylactic medication and stronger abortive medication. Migraine syndrome 11/05/2023 Assessment & Plan (04/04/2025 6:02 AM EDT): - frequency < 8 times per month - Continue judicious use of APAP and NSAIDs - Start sumatriptan as needed for severe migraine - consider prophylactic medications when migraine becomes more frequent Assessment & Plan (07/08/2024 5:15 PM EDT): - frequency < 8 times per month - patient states APAP and NSAIDs are effective - continue judicious use of medications - consider a stronger abortive medication and prophylactic medications when migraine worsens. Assessment & Plan (11/05/2023 6:17 AM EST): - frequency < 8 times per month - patient states APAP and NSAIDs are effective - continue judicious use of medications - consider a stronger abortive medication and prophylactic medications when migraine worsens. Left anterior knee pain 04/27/2023 Assessment & Plan (04/04/2025 5:59 AM EDT): - MRI on 07/04/24 showed lateral meniscus tear - encouraged to continue going to the gym, and try bicycling and/or aquatic exercise - continue with appropriate rest and judicious use of NSAIDs / APAP - Seen by [facility] orthopedist in June 2024. Recommended physical therapy which she received from July to September 2024. -Patient reports improvement of symptoms. Assessment & Plan (07/08/2024 5:07 PM EDT): - MRI on 07/04/24 showed lateral meniscus tear - encouraged to continue going to the gym, and try bicycling and/or aquatic exercise - continue with appropriate rest and judicious use of NSAIDs / APAP - refer to orthopedist Assessment & Plan (04/30/2024 4:38 PM EDT): - likely bursitis - home exercise program - encouraged to continue going to the gym, and try bicycling and/or aquatic exercise - refer to PT (if not covered by insurance, recommended to try [employer] for exercise program that will strengthen muscles surrounding her knees - continue with rest, ice, leg elevation, and judicious use of NSAIDs / APAP Assessment & Plan (11/05/2023 6:11 AM EST): - likely bursitis - home exercise program - encouraged to continue going to the gym, and try bicycling and/or aquatic exercise - refer to PT (if not covered by insurance, recommended to try [employer] for exercise program that will strengthen muscles surrounding her knees - continue with rest, ice, leg elevation, and judicious use of NSAIDs / APAP Assessment & Plan (04/30/2023 5:19 PM EDT): - likely bursitis - home exercise program - evaluate with X-ray - consider ortho or PT referral - continue with rest, ice, leg elevation, and judicious use of NSAIDs / APAP Depression 04/27/2023 Assessment & Plan (04/04/2025 5:58 AM EDT): - patient was previously interested in counseling, however patient was not interested in counseling currently Assessment & Plan (04/30/2024 4:40 PM EDT): - patient was previously interested in counseling, however patient was not interested in counseling currently - patient will follow-up within 2 months and will reassess whether she would like to see a therapist Assessment & Plan (04/30/2023 5:20 PM EDT): - pt would like to have a counseling - will refer Encounters Date Type Department Care Team Description 06/24/2025 2:15 PM EDT Office Visit [address] [address] Kasandra Mar MD Anemia, unspecified type (Primary Dx) 06/24/2025 Travel 06/16/[address] [address] Kasandra Mar MD Med Refill 05/07/[address] [address] Evy Castro [place] june04/14/[address] [address] Kasandra Mar MD 03/24/2025 11:00 AM EDT Office Visit [address] [address] Kasandra Mar MD Tinea pedis of both feet (Primary Dx); Lymph node enlargement; Left anterior knee pain; Tear of lateral meniscus of left knee, current, unspecified tear type, initial encounter; Chronic nonintractable headache, unspecified headache type; Migraine syndrome; Rash; Poison otilio dermatitis; Encounter for prescription for transdermal contraceptive; Major depressive disorder with single episode, remission status unspecified 03/24/2025 Travel from Last 3 Months Immunizations Immunization Administration Dates Next Due Hep B, adult 12/14/2023,07/13/2023,06/12/2023 Tdap 06/12/2023 Family History Medical History Relation Name Comments epilepsy Mother Relation Name Status Comments Mother Social History Tobacco Use Types Packs/Day Years Used Date Smoking Tobacco: Never Passive Smoke Exposure: Never Smokeless Tobacco: Never Tobacco Cessation:Counseling Given: Not Answered Alcohol Use Standard Drinks/Week Comments Never 0 [...] Q2 Not on file 06/24/2024 Comments No Intention Date Recorded No desire to become (finding) 0 03/24/2025 Sex and Gender Information Value Date Recorded Sex Assigned at Female 08/22/2022 10:39 AM EDT Legal Sex Female 10:39 AM EDT Gender Identity Female 01/26/2023 8:58 AM EDT Sexual Orientation Choose not to disclose 2021 10:39 AM EDT Last Filed Vital Signs Vital Sign Reading [...] Mass Index 25.13 06/24/2025 2:11 PM EDT Plan of Treatment Upcoming Encounters Date Type Department Care Team (Late st Contact Info) Description 07/29/2025 2:30 PM EDT Office Visit [facility] [address] [place] [address] Estelle Davis, OD [address] [place] [address] Health Maintenance Due Date Last Done Comments HPV Vaccines (1 - 3-dose series) 01/23/2011 Dental Oral Exam 01/30/2025 07/31/2024, 12/09/2022 Dental Prophylaxis 01/30/2025 07/31/2024, 07/07/2023, 01/26/2023 COVID-19 Vaccine (3 - 2024-2 6 season) 2025 11/05/2021, 10/14/2021 Influenza Vaccine (#1) 2025 Dental X-Ray: Bitewings 08/01/2025 07/31/2024 Alcohol/Substance Use Screening 03/24/2026 03/24/2025 Depression Screening 03/24/2026 03/24/2025, 03/24/2025 Disability Screening 03/24/2026 03/24/2025 SDOH Screening 03/24/2026 03/24/2025 Family Planning (PISQ) 04/04/2026 04/04/2025 Tobacco Screening 06/24/2026 06/24/2025 Pap Smear 07/08/2027 07/08/2024 Dental X-Ray: Full Mouth 08/01/2027 07/31/2024 DTaP/Tdap/Td Vaccines (2 - T d or Tdap) 06/12/2033 06/12/2023 Zoster Vaccines (1 of 2) 01/23/2046 RSV Patients and Patients Aged 60 years or older (1 - 1-dose 75+ series) 01/23/2071 Hepatitis B Vaccines Completed 12/14/2023, 07/13/2023, 06/12/2023 HIV Screening Completed 05/21/2024, 05/02/2023 Hepatitis C Screening Completed 05/21/2024 , 05/02/2023 HIB Vaccines Aged Out No longer eligi ble based on patient's age to complete this topic Hepatitis A Vaccines Aged Out No long er eligible based on patient's age to complete this topic IPV Vaccines Aged Out No longer eligi ble based on patient's age to complete this topic Meningococcal B Vaccine Aged Out No l onger eligible based on patient's age to complete this topic Meningococcal Vaccine Aged Out No ender romy eligible based on patient's age to complete this topic Pneumococcal Vaccine: Pediatrics (0 to 5 Years) and At-Risk Patients (6 to 49) Years Aged Out No longer eligible b ased on patient's age to complete this topic RSV under 20 months Aged Out No longe r eligible based on patient's age to complete this topic Rotavirus Vaccines Aged Out No longer eligible based on patient's age to complete this topic Procedures Procedure Name Priority Date/Time Associated Diagnosis Comments TSH W/REFLEX TO FT4 Routine 03/24/2025 1 :15 PM EDT Lymph node enlargement COMPREHENSIVE METABOLIC PANEL Routine 03/24/2025 1:15 PM EDT Lymph node enlargement CBC WITH AUTO DIFFERENTIAL Routine 03/24/2025 1:15 PM EDT Lymph node enlargement PROPHYLAXIS - ADULT Routine 07/31/2024 9 :00 AM EDT Dental plaque Dental calculus Gingivitis INTRAORAL - COMPLETE SERIES OF RADIOGRAPHIC IMAGES Routine 07/31/2024 9:00 AM EDT PERIODIC ORAL EVALUATION - ESTABLISHED PATIENT Routine 07/31/2024 9:00 AM EDT THINPREP IMAGING SYSTEM PAP Routine 07/08/2024 12:00 AM EDT Encounter for well woman exam with routine gynecological exam HEPATITIS C AB W/REFL TO HCV RNA, QN, PCR Routine 05/21/2024 2:05 PM EDT Routine screening for STI (sexually transmitted infection) HIV 1/2 ANTIGEN/ANTIBODY, FOURTH GENERATION W/RFL Routine 05/21/2024 2:05 PM EDT Routine screening for STI (sexually transmitted infection) from Last 3 Months or Most Recently Relevant to Health Maintenance Results * TSH with Reflex to Free T4 (03/24/2025 1:15 PM EDT) TSH reflex Free T4 1.63 0.32 - 4.0 uIU/mL [facility] Blood 03/24/2025 1:15 PM EDT 03/24/2025 4:04 PM EDT us Kasandra Mar MD LAB BLOOD ORDERABLES Final Resul t [facility] [address] [place] [phone] * (ABNORMAL) CBC auto differential (03/24/2025 1:15 PM EDT) White Blood Count 6.2 4.8 - 10.8 X10*3/uL [facility] Red Blood Count 4.49 4.20 - 5.50 X10*6/uL [facility] Hemoglobin 12.9 12.0 - 16.0 g/dl [facility] Hematocrit 36.6(L) 37.0 - 47.0 % [facility] Mean Corpuscular Volume 81.5 80.0 - 98.0 fL [facility] Mean Corpuscular Hemoglobin 28.7 27.0 - 33.0 pg [facility] Mean Corpuscular HGB Conc 35.2(H) 31.0 - 35.0 g/dl [facility] Red Cell Distribution Width 13.2 11.0 - 16.0 % [facility] Platelet Count 286 160 - 400 X10*3/uL [facility] Mean Platelet Volume 9.2(L) 9.4 - 12.3 fL [facility] Neutrophils Percent Auto 63.2 45 - 73 % [facility] Imm Gran Pct Auto 0.2 0.0 - 0.4 % [facility] Lymphocytes Percent Auto 26.9 20 - 40 % [facility] Monocytes Percent Auto 7.4 2 - 11 % [facility] Eosinophils Percent Auto 1.8 0 - 4 % [facility] Basophils Percent Auto 0.5 0 - 2 % [facility] NRBC Pct Auto 0.0 0.0 - 0.2 /100WBC [facility] Neutrophils Absolute Auto 3.9 2.0 - 8.3 x10*3/uL [facility] Imm Gran Abs Auto 0.01 0.00 - 0.03 X10*3/uL [facility] Lymphocytes Absolute Auto 1.7 1.2 - 4.9 X10*3/uL [facility] Monocytes Absolute Auto 0.5 0.1 - 1.2 X10*3/uL [facility] Eosinophils Absolute Auto 0.1 0.0 - 0.4 X10*3/uL [facility] Basophils Absolute Auto 0.0 0.0 - 0.2 X10*3/uL [facility] NRBC Abs Auto 0.000 0.0 - 0.012 X10*3/uL [facility] Blood Venous blood specimen / Unknown 03/24/2025 1:15 PM EDT 03/24/2025 4:04 PM EDT us Kasandra Mar MD LAB BLOOD ORDERABLES Final Resul t [facility] [address] [place] [phone] [phone] * (ABNORMAL) Comprehensive Metabolic Panel (03/24/2025 1:15 PM EDT) Sodium 139 135 - 145 mmol/L [facility] Potassium 3.5 3.3 - 5.1 mmol/L [facility] Chloride 109(H) 96 - 108 mmol/L [facility] Carbon Dioxide 23 22 - 29 mmol/L [facility] Anion Gap 11(L) 12 - 20 [facility] Urea Nitrogen (BUN) 20(H) 9 - 16 mg/dL [facility] Creatinine, Serum 0.70 0.5 - 1.4 mg/dL [facility] Estimated Glomerular Filt Rate >60 [facility] Comment:Chronic Kidney Disea se: Estimated GFR < 60 mL/min/1.77q0Lsxros Kidney Disease: Estimated GFR < 15 mL/min/1.73m2 Glucose 97 60 - 115 mg/dL [facility] Calcium 9.2 8.4 - 10.2 mg/dL [facility] Bilirubin, Total 0.4 0.0 - 1.0 mg/dL [facility] Aspartate Amino Transferase 22 5 - 31 U/L [facility] Alanine Aminotransferase 21 0 - 31 U/L [facility] Total Protein 7.4 6.5 - 8.0 g/dL [facility] Albumin Level 4.3 3.5 - 5.0 g/dL [facility] Alkaline Phosphatase 48 39 - 117 U/L [facility] Blood Venous blood specimen / Unknown 03/24/2025 1:15 PM EDT 03/24/2025 4:04 PM EDT us Kasandra Mar MD LAB BLOOD ORDERABLES Final Resul t [facility] [address] [place] [phone] * Pap Smear (07/08/2024 12:00 AM EDT) SOURCE: None given [facility] Report Status: TNP [facility] Clinical Information: None given [facility] LMP: NONE GIVEN [facility] Prev. PAP: NONE GIVEN [facility] Prev. BX: NONE GIVEN [facility] Statement Of Adequacy: SEE NOTE [facility] Comment:Satisfactory for stacey luation.Endocervical/transformation zone componentpresent. General Categorization: TNP [facility] Interpretation/Result: SEE NOTE [facility] Comment:Cytology Results: Ne gative for intraepitheliallesion or malignancy. Cytology Comment SEE NOTE [facility] Comment:This Pap test has be en evaluated with computerassisted technology. Wool Cleaner: SEE NOTE [facility] Comment:CMG, CT(ASCP)CT scre ening location: [address] [address] Review Wool Cleaner: SEE NOTE [facility] Comment:JXM, CT(ASCP)CT scre ening location: [address] [address] Pathologist TNP [facility] PAP Infection TNP [facility] See Note SEE NOTE [facility] Comment:The Pap is a screeni ng test for cervical cancer. It isnot a diagnostic test and is subject to false negativeand false positive results. It is most reliable when asatisfactory sample, regularly obtained, is submittedwith relevant clinical findings and history, and whenthe Pap result is evaluated along with historic andcurrent clinical information.THIS TEST PERFORMED AT:[facility] [address] [phone] DIRECTOR: BRAYAN ISSA MD Pap Vial Vaginal structure / Unknown 07/08/2024 07/08/2024 Narrative [facility] - 07/30/2024 3:10 PM EDT SCREENING [id number] [id number] us Kasandra Mar MD LAB PATHOLOGY ORDERABLES Final R esult [facility] [address] [place] [phone] * Hepatitis C Antibody with Reflex to HCV, RNA, Quantitative, Real-Time PCR (05/21/2024 2:05 PM EDT) Hepatitis C Antibody Nonreactive Nonreactive [facility] Comment:Antibodies to HCV no t detected; does not exclude early acuteHCV infection. Blood Venous blood specimen / Unknown 05/21/2024 2:05 PM EDT 05/21/2024 4:50 PM EDT us Kasandra Mar MD LAB BLOOD ORDERABLES Final Resul t Performing Organization Address City/[facility]/ZIP Co de Phone Number [facility] [address] [place] [phone] [phone] * HIV-1/2 Antigen and Antibodies, Fourth Generation, with Reflexes (05/21/2024 2:05 PM EDT) HIV AB/AG Nonreactive Nonreactive [facility] Comment:HIV-1 p24 Ag and/or HIV-1/HIV-2 Ab not detected.A test result that is nonreactive does not exclude thepossibility of exposure to or infection with HIV-1 and/orHIV-2. Nonreactive results in this assay for individualswith prior exposure to HIV-1 and/or HIV-2 may be due toantigen and antibody levels that are below the limit ofdetection of this assay.The Ufree HIV Ag/Ab Combo assay result andsupplemental assay results should be interpreted inconjunction with the patient's clinical presentation,history and other laboratory results. If the results areinconsistent with clinical evidence, additional testing issuggested to confirm the result. Blood Venous blood specimen / Unknown 05/21/2024 2:05 PM EDT 05/21/2024 4:50 PM EDT us Kasandra Mar MD LAB BLOOD ORDERABLES Final Resul t Performing Organization Address City/[facility]/ZIP Co de Phone Number [facility] [address] [place] [phone] [phone] from Last 3 Months or Most Recently Relevant to Health Maintenance Insurance [facility] Care Teams Wiener Packer Relationship Specialty Start Date End Date Kasandra Mar MD [address] [place] [phone] PCP - General Family Medicine 04/27/23
--- OUTSIDE RECORDS SUMMARY | 2025-06-24 16:10 | XMS_ITS | Encounter Summary ---
Author Organization [employer] Address [address] [place] [address] [address] [place] [address] Care Team Providers Care Tour Operator Name Role Phone Kasandra Mar MD Primary Care Provider [phone] Encounter Details Date Type Department Care Team (Latest Contact Info) Description 06/24/2025 Travel Social History Tobacco Use Types Packs/Day Years [...] Description 07/29/2025 2:30 PM EDT Office Visit [facility] [address] [place] [address] Ryan, Estelle, OD [address] [place] [address] documented as of this encounter Visit Diagnoses Not on filedocumented in this encounter Additional Health Concerns Assessment Noted Time PHQ-9 Depression Total Score: 0 03/24/20 25 11:11 AM EDT documented as of this encounter Care Teams Tour Operator Relationship Specialty Start Date End Date Kasandra Mar MD [address] [place] [address] PCP - General Family Medicine 04/27/23 documented as of this encounter
[2025-06-24 16:13] LABS: MANUAL DIFF FLAG NO
[2025-06-24 16:26] LABS: Hematocrit 38.4 % (37.0-47.0); Hemoglobin 13.3 g/dl (12.0-16.0); Imm Gran Abs Auto 0.01 X10*3/uL (0.00-0.03); Imm Gran Pct Auto 0.2 % (0.0-0.4); Lymphocytes Absolute Auto 1.9 X10*3/uL (1.2-4.9); Mean Corpuscular HGB Conc 34.6 g/dl (31.0-35.0); Mean Corpuscular Hemoglobin 28.4 pg (27.0-33.0); Mean Corpuscular Volume 81.9 fL (80.0-98.0); NRBC Abs Auto 0.000 X10*3/uL (0.0-0.012); NRBC Pct Auto 0.0 /100WBC (0.0-0.2); Platelet Count 274 X10*3/uL (160-400); Red Blood Count 4.69 X10*6/uL (4.20-5.50); Reticulocytes Absolute 0.058 X10*6/uL (0.026-0.095); White Blood Count 6.2 X10*3/uL (4.8-10.8)
[2025-06-24 16:54] LABS: Iron 45 mcg/dL (30-160); Percent Iron Saturation 16 % (15-50); Total Iron Binding Capacity 281 mcg/dL (228-428); Unsaturated Iron Binding 236 ug/dL
[2025-06-24 17:10] LABS: Ferritin 33 ng/mL (10-122)
[2025-06-24 17:20] LABS: Folate 16.2 ng/mL (> or = 4.0); Vitamin B12 683 pg/mL (200-900)
== END 2025-06-24 14:55 | disposition home or self-care (01) ==
LOC: HO.HHCL 14:54
PROVIDERS: PCP Family Medicine; Visit Provider Family Medicine
DX: D64.9 Anemia, unspecified (principal)
CPT/HCPCS: 36415; 82607; 82728; 82746; 83540; 84443; 85025; 85045